=== PATIENT | female | born 2000 | race Two or more races ===

== ENCOUNTER 2024-01-21 19:55 | Emergency (ER) | payer OTHER ==
[~2024-01-21] VITALS: Ht 172.7 cm; Wt 90.7 kg
[2024-01-21] MEDS ORDERED: CETIRIZINE HCL 5 MG/5 ML ML PO STA (21:33)
[2024-01-21] MEDS ORDERED: GUAIFENESIN/DEXTROMETHORPHAN 10ML BLIST.PACK PO STA (21:34)
[2024-01-21] MEDS ORDERED: CETIRIZINE HCL 5MG/5ML BLIST.PACK PO ONE (21:36)
[2024-01-21] MEDS ORDERED: GUAIFENESIN/DEXTROMETHORPHAN 10ML BLIST.PACK PO ONE (21:37)
[2024-01-21 21:49] LABS: HEMATOCRIT 39.1 % (36.0-45.00); HEMOGLOBIN 13.2 g/dL (12.0-15.00); MEAN CELL VOLUME 79.7 fL (80.00-100.00); MEAN CORPUSCULAR HEMOGLOBIN 26.9 pg (27.00-32.0); MEAN CORPUSCULAR HGB CONC 33.8 g/dl (32.0-36.0); PLATELET COUNT 314 K/uL (150-450); RED BLOOD COUNT 4.91 M/uL (4.00-6.00); RED CELL DISTRIBUTION WIDTH 14.4 % (11.5-14.5)
[2024-01-21] MEDS ORDERED: MUCINEX DM ER1 EACH PO (23:40)
[2024-01-21] MEDS ORDERED: BENZONATATE200 M1 PO (23:40)
[2024-01-21] MEDS ORDERED: ZYRTEC10 MG PO (23:40)
[2024-01-21] MEDS ORDERED: SINGULAIR10 MG PO (23:40)
== END 2024-01-22 00:20 | disposition home or self-care (01) ==
LOC: ER 19:55
PROVIDERS: General Practice
DX: U07.1 COVID-19 (principal)